=== PATIENT | male | born 1980 | race African-American/Black ===

== ENCOUNTER 2018-03-22 18:55 | Emergency (ER) | payer OTHER ==
[~2018-03-22] VITALS: Ht 177.8 cm; Wt 99.8 kg
[2018-03-22] MEDS ORDERED: DUEXIS 800-26.1 EACH (19:21)
[2018-03-22] MEDS ORDERED: CLEOCIN HCL300 MG (19:21)
== END 2018-03-22 23:27 | disposition home or self-care (01) ==
LOC: ER 18:55
DX: L02.31 Cutaneous abscess of buttock (principal)